=== PATIENT | male | born 1995 | race Caucasian/White ===

== ENCOUNTER 2020-02-13 09:00 | Emergency (ER) | payer BC, OTHER ==
[~2020-02-13] VITALS: Ht 170.2 cm; Wt 79.4 kg
--- NOTE | 2020-02-13 09:09 | NUR ---
AMB TO [facility]
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
--- NOTE | 2020-02-13 09:20 | NUR ---
TO XRAY VIA W/C
--- NOTE | 2020-02-13 09:56 | NUR ---
VELCRO WRIST SPLINT ADJUSTED AND APPLIED TO PATIENTS RIGHT WRIST. PATIENT TOLERATED SPLINT WELL. PMSC'S ASSESSED AND WNL
[2020-02-13 10:00] VITALS: BP 128/78
== END 2020-02-13 10:00 | disposition home or self-care (01) ==
LOC: MED 09:00
DX: S63.502A Unspecified sprain of left wrist, initial encounter (principal); V29.9XXA Motorcycle rider (driver) (passenger) injured in unspecified traffic accident, initial encounter; Y93.89 Activity, other specified; Y92.89 Other specified places as the place of occurrence of the external cause; Y99.8 Other external cause status
CPT/HCPCS: 73110; 99283

== ENCOUNTER 2020-05-08 18:25 | Emergency (ER) | payer OTHER ==
[~2020-05-08] VITALS: Ht 167.6 cm; Wt 81.6 kg
[2020-05-08 18:40] VITALS: BP 151/72
--- NOTE | 2020-05-08 18:58 | NUR ---
to xray via wheelchair
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
[2020-05-08] MEDS ORDERED: BACITRACIN OINT 500 UNITS/GM PKT TP ONE (19:30)
[2020-05-08] MEDS ORDERED: KETOROLAC 30 MG/ML VIAL IM ONE (19:30)
[2020-05-08 20:19] VITALS: BP 151/72
--- NOTE | 2020-05-08 20:19 | NUR ---
Patient discharged with v/s stable. Written and verbal after care instructions given and explained. Patient alert, oriented and verbalized understanding of instructions. Ambulatory with steady gait. All questions addressed prior to discharge. ID band removed. Patient advised to follow up with PMD. Rx of IBUPROFEN, BACITRACIN given. Patient educated on indication of medication including possible reaction and side effects. Opportunity to ask questions provided and answered.
== END 2020-05-08 20:19 | disposition home or self-care (01) ==
LOC: MED 18:25
DX: S43.402A Unspecified sprain of left shoulder joint, initial encounter (principal); S60.811A Abrasion of right wrist, initial encounter; S09.90XA Unspecified injury of head, initial encounter; J45.909 Unspecified asthma, uncomplicated; W19.XXXA Unspecified fall, initial encounter; Y93.55 Activity, bike riding; Y92.89 Other specified places as the place of occurrence of the external cause; Y99.8 Other external cause status
CPT/HCPCS: 73030; 73110; 90471; 90715; 96372; 99284; J1885